=== PATIENT | female | born 1955 | race Caucasian/White ===

== ENCOUNTER 2022-07-27 08:35 | Day surgery (SDC) | payer MEDICARE, BC ==
[~2022-07-27] VITALS: Ht 157.5 cm; Wt 66.3 kg
[2022-07-27] MEDS ORDERED: EUTHYROX50 MCG (09:31)
[2022-07-27] MEDS ORDERED: ASPI81CH (09:32)
[2022-07-27] MEDS ORDERED: VITAMIN D310 MC4 (09:32)
[2022-07-27] MEDS ORDERED: ATOR10 (09:32)
[2022-07-27] MEDS ORDERED: FLUTICASONE-SA1 EAC1 (09:32)
[2022-07-27] MEDS ORDERED: SYSTANE BALANCE10 ML (09:33)
[2022-07-27] MEDS ORDERED: ALLERCLEAR10 MG (09:33)
[2022-07-27] MEDS ORDERED: OMEGA-3 + VITA200 ML (09:33)
[2022-07-27] MEDS ORDERED: ZADITOR5 M1 (09:34)
[2022-07-27] MEDS ORDERED: ALBU8HFA2 (09:34)
[2022-07-27] MEDS ORDERED: Vitamin C100 M1 (09:34)
[2022-07-27] MEDS ORDERED: Prednisone10 MG (09:35)
[2022-07-27] MEDS ORDERED: QVAR REDIHALE10.6 G3 (09:35)
[2022-07-27 11:51] VITALS: BP 141/79
== END 2022-07-27 11:45 | disposition home or self-care (01) ==
LOC: ORSCSDS 08:35
PROVIDERS: Surgery
PROC: 0DJD8ZZ Inspection of Lower Intestinal Tract, Via Natural or Artificial Opening Endoscopic (ICD-10-PCS; principal; 2022-07-27 09:45)
DX: Z12.11 Encounter for screening for malignant neoplasm of colon (principal); J45.909 Unspecified asthma, uncomplicated; E03.9 Hypothyroidism, unspecified; E78.5 Hyperlipidemia, unspecified; Z79.82 Long term (current) use of aspirin; Z79.899 Other long term (current) drug therapy
CPT/HCPCS: J2704; J7120

== ENCOUNTER → 2023-11-23 | Outpatient (CLI) | payer MEDICARE, BC ==
[~2023-11-23] MED LIST: ALBU8HFA2; ALLERCLEAR10 MG; ASPI81CH; ATOR10; EUTHYROX50 MCG; FLUTICASONE-SA1 EAC1; OMEGA-3 + VITA200 ML; Prednisone10 MG; QVAR REDIHALE10.6 G3; SYSTANE BALANCE10 ML; VITAMIN D310 MC4; Vitamin C100 M1; ZADITOR5 M1
== END ==
LOC: LAB 18:50 → LAB SHORT 18:50
DX: R10.13 Epigastric pain (principal)
CPT/HCPCS: 87338

== ENCOUNTER → 2023-11-23 | Outpatient (CLI) | payer MEDICARE, BC ==
[2023-11-23 15:25] LABS: BASOPHILS ABSOLUTE AUTO 0.02 K/mm3 (0.00-0.23); BASOPHILS PERCENT AUTO 1 % (0-2); EOSINOPHILS ABSOLUTE AUTO 0.08 K/mm3 (0.00-0.68); EOSINOPHILS PERCENT AUTO 2 % (0-6); Hematocrit 41.9 % (33.0-51.0); Hemoglobin 14.2 g/dL (11.5-16.0); IMMATURE GRAN ABSOLUTE AUTO 0.01 K/mm3 (0.00-0.10); IMMATURE GRAN PERCENT AUTO 0 % (0-1); LYMPHOCYTES ABSOLUTE AUTO 1.41 K/mm3 (0.84-5.20); LYMPHOCYTES PERCENT AUTO 34 % (21-46); MONOCYTES ABSOLUTE AUTO 0.41 K/mm3 (0.16-1.47); MONOCYTES PERCENT AUTO 10 % (4-13); Mean Corpuscular HGB 32.7 pg (26.0-34.0); Mean Corpuscular HGB Conc 33.9 g/dL (31.5-36.5); Mean Corpuscular Volume 97 fL (80-100); Mean Platelet Volume 11.6 fL (9.1-12.4); NEUTROPHILS ABSOLUTE AUTO 2.28 K/mm3 (1.96-9.15); NEUTROPHILS PERCENT AUTO 54 % (41-73); Platelet Count 265 K/mm3 (150-400); RDW Standard Deviation 42.6 fL (35.1-46.3); Red Blood Cell Count 4.34 M/mm3 (3.80-5.20); White Blood Cell Count 4.21 K/mm3 (4.00-11.30)
[2023-11-23 18:04] LABS: Albumin, Blood 3.7 g/dL (3.4-5.0); Albumin/Globulin Ratio 1.1 (0.8-1.8); Bilirubin, Total 0.7 mg/dL (0.1-1.0); Bun/Creatinine Ratio 20.6 (12.0-20.0); Calcium, Blood 8.9 mg/dL (8.5-10.1); Creatinine, Blood 0.88 mg/dL (0.40-1.00); Globulin, Blood 3.5 g/dL (2.2-4.0); Total Protein, Blood 7.2 g/dL (6.4-8.2)
== END ==
LOC: LAB 14:46 → LAB SHORT 14:46
PROVIDERS: Nurse Practitioner Family
DX: R10.84 Generalized abdominal pain (principal); R11.2 Nausea with vomiting, unspecified; R30.9 Painful micturition, unspecified
CPT/HCPCS: 80053; 83690; 85025; 87086

== ENCOUNTER → 2024-03-25 | Outpatient (CLI) | payer MEDICARE, BC | LOC: LAB SHORT 17:18 → LAB 17:18 | DX: N39.0 Urinary tract infection, site not specified (principal) | CPT/HCPCS: 87086 ==

== ENCOUNTER → 2024-08-12 | Outpatient (CLI) | payer MEDICARE, BC | LOC: LAB 13:30 → LAB SHORT 13:30 | DX: N39.0 Urinary tract infection, site not specified (principal) | CPT/HCPCS: 87086; 87147 ==